=== PATIENT | female | born 1990 | race Hispanic/Latino ===

== ENCOUNTER 2016-09-25 09:05 | Emergency (ER) | payer MEDICAID, OTHER ==
--- NOTE | 2016-09-25 11:39 | OBHP ---
Datetime: 09/25/2016 11:33 IP Adm Impression: , intrauterine ; No Active Labor; Intact Membranes IP Admit Plan: Observation/Evaluation; Discharge home Admit Comment, IP Provider: The patient is a 25-year-old 5 para 2 estimated due date 017 estimated gestational age 26 weeks patient presents to labor and delivery complaining of abdomina l cramps times several hours duration patient states stops up to the top of the uterus and radiates t owards the lower aspect of the abdomen. Patient denies any vaginal bleeding or leakage of fluid she r eports good movement. Patient states she had intercourse last night. She denies dyuria Past medical history anxiety past surgical history arm surgery Medications vitamins No known drug allergies Social history denies alcohol tobacco use care poor care (had 2 visits) Review of systems patient denies headache chest pain shortness of breath palpitations nausea vomit ing diarrhea vaginal bleeding dysuria. Cold intolerance easy bruisability musculoskeletal or neurolog ical complaints Vital signs stable afebrile Physical exam she notes Intrauterine lower abdominal discomfort Poor care start IV fluids send urinalysis and CBC External monitor and observation Pelvic Type - PN: Adequate Extremities - PN: Normal Abdomen - PN: Normal Back - PN: Normal Breast - PN: Normal Lungs - PN: Normal Heart - PN: Normal Thyroid - PN: Normal Neurologic - PN: Normal HEENT - PN: Normal General - PN: Normal Presentation-Admit: Vertex FHR - Baseline A Provider: 145 Gestation - Est Wks by US: 26.0 EGA AdmitDate IP: 25.1 Vital Signs Provider: Reviewed IP Chief Complaint: Maternal discomfort NICHD Decel Fetus A IP Provider: None Dilatation, Provider: 0 Effacement, Provider: - Station, Provider: -2 Genitourinary Exam: Normal DTRs - PN: Normal
[2016-09-25] MEDS: Lactated Ringer's 1,000 ML IV SCH ×2 (11:40→12:37)
[2016-09-25 11:43] VITALS: BMI 22.1
[2016-09-25 12:29] LABS: HEMATOCRIT 35.5 % (34.0-47.0); MEAN CELL VOLUME 93.3 fl (81.0-99.0); MEAN CORPUSCULAR HEMOGLOBIN 32.2 pg (27.0-31.0); MEAN CORPUSCULAR HGB CONC 34.5 g/dL (33.0-37.0); RED CELL DISTRIBUTION WIDTH 12.9 % (11.5-14.5); WHITE BLOOD COUNT 9.2 K/uL (4.8-10.8)
[2016-09-25 12:37] LABS: RBC URINE 1 /hpf (0-3); URINE BACTERIA RARE (<OCC); URINE BILIRUBIN NEGATIVE (NEGATIVE); URINE BLOOD NEGATIVE (NEGATIVE); URINE COLOR YELLOW (YELLOW); URINE GLUCOSE (UA) NEG (Normal); URINE KETONE NEGATIVE (NEGATIVE); URINE LEUKOCYTE ESTERASE MOD Leu/uL (Negative); URINE PROTEIN NEGATIVE (NEGATIVE); URINE UROBILINOGEN 0.2-1.0 mg/dL (0.2-1.0); WBC URINE 3 /hpf (0-5)
== END 2016-09-25 13:50 | disposition home or self-care (01) ==
LOC: H.EROB2 09:05 → H.L&D 09:24 → H.EROB2 13:50
DX: O47.02 False labor before 37 completed weeks of gestation, second trimester (principal); Z3A.25 25 weeks gestation of pregnancy
CPT/HCPCS: 81003; 85027; 87086; 96360; 99283; J7120